=== PATIENT | male | born 1935 | race Caucasian/White ===

== ENCOUNTER 2016-10-06 09:07 | Observation (INO) | payer MEDICARE ==
[~2016-10-06] VITALS: Ht 162.6 cm; Wt 87.0 kg
[~2016-10-06 09:07] MED LIST: AMOXICILLIN/CL875 MG PO; AUGMENTIN875TAB PO; AVODART0.5 MG PO; BL ADULT ASA81 MG OR; CIPROFLOXACN500 MG PO; CRESTOR40 MG PO; FISH OIL1200 MG PO; FLOMAX0.4 M1 PO; FLONASE NASAL50 MCG; FLORASTOR250 M1 PO; MECLIZINE25 MG PO; MELOXICAM15 MG PO; MELOXICAM7.5 MG PO; METOPROL TAR25 M1 PO; NORCO1 TA1 OR; OMEPRAZOLE20 MG PO; PRAVASTATIN SOD20 MG PO; ROCEPHIN 1 GM1 GM IM; TRAMADOL HCL50 MG PO; VITAMIN C500 MG OR; VITAMIN D31000 UNI1 OR
--- NOTE | 2016-10-06 09:10 | NUR ---
PT TO ROOM 9 VIA WHEELCHAIR.
[2016-10-06] MEDS ORDERED: LEFLUNOMIDE20 MG PO (09:26)
[2016-10-06] MEDS ORDERED: ATORVASTATIN CA80 MG PO (09:27)
[2016-10-06] MEDS ORDERED: LISINOPRIL5 MG PO (09:28)
[2016-10-06] MEDS ORDERED: PLAVIX75 MG PO (09:28)
[2016-10-06] MEDS ORDERED: ASPIRIN EC81 MG PO (09:29)
[2016-10-06 09:37] LABS: HEMATOCRIT 37.7 % (39.0-50.0); HEMOGLOBIN 11.9 g/dl (14.0-18.0); MEAN CELL VOLUME 94.7 fL CALC (80.0-100.0); MEAN CORPUSCULAR HGB 29.9 pG CALC (26.0-32.0); MEAN CORPUSCULAR HGB CONC 31.6 g/L CALC (32.0-36.0); NEUT# 2.51 thou/uL (1.82-7.42); RED BLOOD COUNT 3.98 mill/uL (4.70-6.10); RED CELL DISTRI WIDTH 14.8 % (11.5-15.5)
[2016-10-06 09:47] LABS: ALBUMIN 3.9 g/dL (3.2-5.0); ALKALINE PHOSPHATASE 160 u/l (38-126); ANION GAP 13 (6-22 (CALC)); BILIRUBIN, TOTAL 0.6 mg/dL (0.0-1.4); BUN 21 mg/dL (8-23); BUN/CREATININE RATIO 22 (12-20 (CALC)); CALCIUM 8.9 mg/dL (8.4-10.2); CARBON DIOXIDE 27 mmol/l (22-30); CHLORIDE 107 mmol/l (95-108); GFR > 60 ML/MIN (>=60 (CALC)); GFR FOR AFR.AMER. > 60 ML/MIN (>=60 (CALC)); GLUCOSE 95 mg/dL (82-115); POTASSIUM 4.1 mmol/l (3.5-5.1); SGOT/AST 48 u/l (19-48); SGPT/ALT 33 u/l (11-66); SODIUM 143 mmol/l (137-146); TOTAL PROTEIN 7.4 g/dL (6.3-8.2)
[2016-10-06 09:48] LABS: INTERNATIONAL NORMALIZED RATIO 0.9 RATIO (0.7-1.3); PROTHROMBIN TIME 10.1 SECONDS (9.0-12.5)
[2016-10-06 10:00] LABS: MYOGLOBIN 96 ng/mL (0 - 121)
--- NOTE | 2016-10-06 11:19 | NUR ---
PT IN HIGH SCHMIDT'S POSITION, C/O RESOLVED LEFT SIDED CHEST PAIN, NO DIAPHORESIS OR SHORTNESS OF BREATH NOTED. MONITOR SHOWS SR, BRUISING NOTED TO LEFT CHEST WALL AND LEFT SHOULDER. PT REPORTS OLD NON SYNCOPAL FALL.
--- NOTE | 2016-10-06 12:25 | NUR ---
RECEIVED PT FROM ER VIA WHEELCHAIR, PT ABLE TO AMBULATE TO SCALE AND THEN TO BED WITH MINIMIAL ASSISTANCE. INSTRUCTED ON ROOM ARRANGEMENT, OPERATION OF BED AND CALL LIGHT. PT VERBALIZED UNDERSTANDING OF TEACHING. INSTRUCTED PT THAT WE WILL MONITOR HIS LAB VALUES. PT UNDERSTANDS TEACHING AND WILLING TO PARTICIPATE IN CARE. CALL LIGHT WITHIN REACH.
--- NOTE | 2016-10-06 12:25 | NUR ---
PT TO M ED SURG VIA WC IN STABLE CONDITION.
[2016-10-06 12:31] VITALS: BP 209/78
[2016-10-06] MEDS ORDERED: CALCIUM 1200 PO (13:30)
[2016-10-06] MEDS ORDERED: CALCIUM600 M1 PO (13:34)
--- NOTE | 2016-10-06 13:36 | NUR ---
PT WAS DOING ALRIGHT, HE DID NOT HAVE ANY CONCERNS OR SE WITH ANY MEDICATION. HE WAS ANXIOUS ABOUT LEAVING TOMORROW.
[2016-10-06 15:24] VITALS: BP 134/73
--- NOTE | 2016-10-06 18:13 | NUR ---
PT CONTINUES TO REST QUIETLY. NO CHANGE IN ASSESSMENT. NO COMPLAINTS VOICED AT THIS TIME. WILL CONTINUE TO MONITOR. CALL LIGHT WITHIN REACH.
[2016-10-06 19:22] VITALS: BP 121/68
--- NOTE | 2016-10-06 19:45 | NUR ---
3RD TROPININ BACK, NOTIFIED DR. THRASHER, PATIENT BEING DISCHARGE. PT IS TO FOLLOW UP WITH PROSTHETICS LAB TECHNICIAN AND PRIMARY CARE PHYSICIAN IN ONE WEEK. PT VERBALIZED UNDERSTANDING OF TEACHING.
--- NOTE | 2016-10-06 20:04 | NUR ---
Discharge instructions given. Patient verbalizes understanding of same. Discharged in stable condition via Wheelchair to Home with spouse. All belongings sent with pt.
== END 2016-10-06 20:05 | disposition home or self-care (01) ==
LOC: ENPENDDIS → ED 09:07 → ED-I 10:49 → ED 10:54 → MS2 10:55
PROVIDERS: Emergency Medicine; ADMIT Internal Medicine; ATTEND Internal Medicine
DX: R07.89 Other chest pain (principal); I16.0 Hypertensive urgency; I10 Essential (primary) hypertension; I25.10 Atherosclerotic heart disease of native coronary artery without angina pectoris; S20.212A Contusion of left front wall of thorax, initial encounter; M25.512 Pain in left shoulder; R94.31 Abnormal electrocardiogram [ECG] [EKG]; W19.XXXA Unspecified fall, initial encounter; Z87.891 Personal history of nicotine dependence
CPT/HCPCS: G0378

== ENCOUNTER 2018-06-26 10:30 | Observation (INO) | payer MEDICARE ==
[~2018-06-26] VITALS: Ht 162.6 cm; Wt 90.9 kg
[2018-06-26] VITALS (11 sets, daily range): BP systolic 113–157; BP diastolic 54–75
[~2018-06-26 10:30] MED LIST changes: +ASPIRIN EC81 MG PO; +ATORVASTATIN CA80 MG PO; +CALCIUM 1200 PO; +CALCIUM600 M1 PO; +LEFLUNOMIDE20 MG PO; +LISINOPRIL5 MG PO; +PLAVIX75 MG PO
--- NOTE | 2018-06-26 10:37 | NUR ---
PT STATES THAT HE BEGAN FEELING DIZZY YESTERDAY SINCE YESTERDAY. PT IS AOX4. PT DENIES ANY C/P, SOB, N/V OR WEAKNESS. PT DENIES HEADACHE OR BLURRED VISION. PT STATES HE DID NOT TAKE HIS B/P MEDICATION TODAY. PT STATES THAT HE IS ALSO NAUSEATED BUT DID NOT VOMIT.
[2018-06-26 10:54] LABS: HEMATOCRIT 42.6 % (39.0-50.0); HEMOGLOBIN 13.8 g/dl (14.0-18.0); IMMATURE GRANULOCYTES 0.3 % (0.0-5.0); MEAN CELL VOLUME 93.8 fL CALC (80.0-100.0); MEAN CORPUSCULAR HGB 30.4 pG CALC (26.0-32.0); MEAN CORPUSCULAR HGB CONC 32.4 g/L CALC (32.0-36.0); NEUT# 4.33 thou/uL (1.82-7.42); RED BLOOD COUNT 4.54 mill/uL (4.70-6.10); RED CELL DISTRI WIDTH 14.9 % (11.5-15.5)
[2018-06-26 11:11] LABS: ANION GAP 14 (6-22 (CALC)); BUN 19 mg/dL (8-23); BUN/CREATININE RATIO 18 (12-20 (CALC)); CARBON DIOXIDE 25 mmol/l (22-30); CHLORIDE 104 mmol/l (95-108); CREATININE 1.1 mg/dL (0.7-1.3); GFR > 60 ML/MIN (>=60 (CALC)); GFR FOR AFR.AMER. > 60 ML/MIN (>=60 (CALC)); POTASSIUM 4.8 mmol/l (3.5-5.1); SODIUM 138 mmol/l (137-146)
--- NOTE | 2018-06-26 11:37 | NUR ---
PT RESTING ON STRETCHER, DISCUSSING CONTINUED TREATMENT OPTIONS WITH MD
--- NOTE | 2018-06-26 12:37 | NUR ---
PT RESTING ON STRETCHER, FRIEND AT BEDSIDE. NO COMPLAINTS STATED
--- NOTE | 2018-06-26 13:37 | NUR ---
PT RESTING ON STRETCHER, IV PATENT WITH MEDICATION RUNNING
--- NOTE | 2018-06-26 13:48 | NUR ---
REPORT CALLED TO BERTHA HUGHES- ACCEPTED PT
--- NOTE | 2018-06-26 14:00 | NUR ---
male pt received to ICU bed 3 via stretcher accompanied by Luther Srivastava RN in stable condition; ambulatory to scale then bed with steady gait; admission assessment completed at this time; pt alert and oriented; c/c of n/v/ dizziness and elevated bp; pt denies taking bp meds this morning d/t inability to eat; denies pain and current; no n/v noted; resp even and unlabored; lungs clear; skin color wnl; ra; hr reg; strong pulses; no edema noted; sr on monitor; bilat knee high lemuel hose placed; abd soft with bs present; no bm noted per magnetic tape typewriter operator; pt voiding clear yellow urine without complication; urinal at bedside; #20 intact to lac with cardene gtt infusing at 5mg/hr; no redness or edema noted at site; generalized bruising/ecchymosis/scabs noted throughout body; bandaid noted to mid lower back s/p spinal stenosis sx on 06/07/18; bruising noted to sacrum; plan of care/ meds explained; call light within reach; will continue to monitor
--- NOTE | 2018-06-26 14:09 | NUR ---
Admission Note Report Given to: EBRTHA HUGHES Transported by: Wheelchair X Stretcher Transported with: X Nurse Transporter X Patent IV O2 X Technology Education Teacher TRASNPORTED TO ICU 3 WITHOUT INCIDENT
--- NOTE | 2018-06-26 15:59 | NUR ---
awake in bed; no distress noted; pt offers no complaints; iv patent; no redness or edema noted at site; cardene gtt cont at 5mg/hr; no redness or edema noted at site; pt deny needs; call light within reach; will continue to monitor
--- NOTE | 2018-06-26 16:15 | NUR ---
Dr Krishnan present at bedside to assess pt and discuss plan of care; SBP to remain above 140; cardene gtt titrated to 2.5mg/hr at this time; sr on monitor; cardene gtt to be weaned after po meds; will continue to monitor
--- NOTE | 2018-06-26 17:12 | NUR ---
Dr Krishnan called per telegraphic typewriter mechanic; lisinopril scheduled to start in am; order to start now
--- NOTE | 2018-06-26 18:07 | NUR ---
awake in bed eating dinner; no distress noted; spouse present at bedside; iv patent; cardene gtt at 2.5mg/hr; no redness or edema noted at site; sr on monitor; bed in lowest position; call light within reach
--- NOTE | 2018-06-26 18:50 | NUR ---
PREVIOS SHIFT NURSE ROSIE CONNELL GTT AT THIS TIME FOR BP WNL
--- NOTE | 2018-06-26 20:00 | NUR ---
PT RESTING IN BED WTIH EYES CLOSED. PT AROUSES TO VERBAL STIMULI. PT IS ALERT AND ORIENTED X3. SHIFT ASSESSMENT COMPLETED AT THIS TIME. PLAN OF CARE REVIEWED WITH PT. PT VERBALIZED UNDERSTANDING. CALL LIGHT IN REACH. WILL CONTINUE TO MONITOR.
--- NOTE | 2018-06-26 22:12 | NUR ---
PT RESTING IN BNED WITH EYES CLOSED. RESP ARE EVEN AND UNLABORED. NO DISTRESS NOTED. CALL LIGHT IN REACH. WILL CONTINUE TO MONITOR.
--- NOTE | 2018-06-27 00:06 | NUR ---
PT RESTING IN BED WITH EYES CLOSED. RESP ARE EVEN AND UNLABORED. NO DISTRESS NOTED. CALL LIGHT IN REACH. WILL CONTINUE TO MONTIOR
[2018-06-27 01:00] VITALS: BP 148/59
--- NOTE | 2018-06-27 02:01 | NUR ---
PT RESTING IN BED WITH EYES CLOSED. RESP ARE EVEN AND UNLABORED. NO DISTRESS NOTED. CALL LIGHT IN REACH. WILL CONTINUE TO MONTIOR
[2018-06-27 03:00] VITALS: BP 153/78
--- NOTE | 2018-06-27 03:33 | NUR ---
PT RESTING IN BED WITH EYES CLOSED. RESP ARE EVEN AND UNLABORED. NO DISTRESS NOTED. CALL LIGHT IN REACH. WILL CONTINUE TO MONITOR
--- NOTE | 2018-06-27 04:10 | NUR ---
AVIATION ORDNANCE OFFICER INTO ROOM TO DRAW AM LABS
[2018-06-27 04:46] LABS: HEMATOCRIT 39.6 % (39.0-50.0); HEMOGLOBIN 12.5 g/dl (14.0-18.0); IMMATURE GRANULOCYTES 0.2 % (0.0-5.0); MEAN CELL VOLUME 93.6 fL CALC (80.0-100.0); MEAN CORPUSCULAR HGB 29.6 pG CALC (26.0-32.0); MEAN CORPUSCULAR HGB CONC 31.6 g/L CALC (32.0-36.0); NEUT# 3.7 thou/uL (1.82-7.42); RED BLOOD COUNT 4.23 mill/uL (4.70-6.10); RED CELL DISTRI WIDTH 15.1 % (11.5-15.5)
[2018-06-27 05:07] LABS: ALBUMIN 3.2 g/dL (3.2-5.0); ALKALINE PHOSPHATASE 114 u/l (38-126); ANION GAP 8 (6-22 (CALC)); BILIRUBIN, TOTAL 0.6 mg/dL (0.0-1.4); BUN 15 mg/dL (8-23); BUN/CREATININE RATIO 15 (12-20 (CALC)); CARBON DIOXIDE 30 mmol/l (22-30); CHLORIDE 107 mmol/l (95-108); GFR > 60 ML/MIN (>=60 (CALC)); GFR FOR AFR.AMER. > 60 ML/MIN (>=60 (CALC)); MAGNESIUM 1.9 mg/dL (1.6-2.3); POTASSIUM 4.6 mmol/l (3.5-5.1); SGOT/AST 21 u/l (19-48); SODIUM 141 mmol/l (137-146)
--- NOTE | 2018-06-27 05:56 | NUR ---
PT RESTING IN BED AWAKE WATCHING TV. RESP ARE EVEN AND UNLABORED. NO DISTRESS NOTED. CALL LIGHT IN REACH. WILL CONTINUE TO MONITOR
[2018-06-27 05:57] VITALS: BP 134/65
[2018-06-27 08:00] VITALS: BP 157/77
--- NOTE | 2018-06-27 08:00 | NUR ---
PT SEEN AWAKE, ALERT. LUNGS CLEAR BUT DIMINISHED. PT STATES RECENT BACK SURGERY, STILL HEALING FROM THAT. PT HOPES FOR DISCHARGE TODAY.
[2018-06-27 09:00] VITALS: BP 157/77
--- NOTE | 2018-06-27 09:46 | NUR ---
PT OFFERED AM ADL CARE WITH AT BEDSIDE, STATES HE WOULD RATHER WAIT UNTIL THE DOCTOR ROUNDS BECAUSE IF HE CAN BE DISCHARGED HE WILL JUST CLEAN UP AT HOME. WILL READDRESS AFTER MD ROUNDS, CALL AYERS WITHIN REACH, AT BEDSIDE.
[2018-06-27 11:00] VITALS: BP 119/61
--- NOTE | 2018-06-27 12:03 | NUR ---
PT SEEN BY DR LONG THIS MORNING, ANTICIPATE DISPOSITION HOME SOON.
--- NOTE | 2018-06-27 12:28 | NUR ---
PT HAS BEEN DISCHARGED TO HOME. PT VERBALIZED UNDERSTANDING OF DC INSTRUCTIONS, TAKEN BY WHEELCHAIR TO BENCH OUTSIDE. PT LEAVES IN STABLE CONDITION, LAST BLOOD PRESSURE 117/51.
== END 2018-06-27 12:15 | disposition home or self-care (01) ==
LOC: ED 10:30 → ED-I 11:50 → ED 12:13 → ICU 12:14
PROVIDERS: Family Medicine; ADMIT Internal Medicine Nephrology; ATTEND Internal Medicine Nephrology
DX: I16.1 Hypertensive emergency (principal); I10 Essential (primary) hypertension; T46.5X6A Underdosing of other antihypertensive drugs, initial encounter; E78.5 Hyperlipidemia, unspecified; I25.10 Atherosclerotic heart disease of native coronary artery without angina pectoris; N40.0 Benign prostatic hyperplasia without lower urinary tract symptoms; F41.9 Anxiety disorder, unspecified; K21.9 Gastro-esophageal reflux disease without esophagitis; M06.9 Rheumatoid arthritis, unspecified; Z95.5 Presence of coronary angioplasty implant and graft; Z91.128 Patient's intentional underdosing of medication regimen for other reason; Z79.02 Long term (current) use of antithrombotics/antiplatelets; Z87.891 Personal history of nicotine dependence
CPT/HCPCS: J1650

== ENCOUNTER 2018-10-22 13:54 | Emergency (ER) | payer MEDICARE ==
[~2018-10-22] VITALS: Ht 162.6 cm; Wt 86.4 kg
[2018-10-22] MEDS ORDERED: MUPIROCIN2 % EX (14:28)
[2018-10-22] MEDS ORDERED: AUGMENTIN875TAB PO (14:28)
[2018-10-22 15:04] VITALS: BP 124/55
== END 2018-10-22 15:04 | disposition home or self-care (01) ==
LOC: ED 13:54
DX: S61.452A Open bite of left hand, initial encounter (principal); I10 Essential (primary) hypertension; W54.0XXA Bitten by dog, initial encounter; Y93.89 Activity, other specified; Y92.009 Unspecified place in unspecified non-institutional (private) residence as the place of occurrence of the external cause

== ENCOUNTER 2020-12-13 17:24 | Emergency (ER) | payer MEDICARE ==
[~2020-12-13 17:24] MED LIST changes: +MUPIROCIN2 % EX
== END 2020-12-13 18:11 | disposition left against medical advice (07) ==
LOC: ED 17:24 → LWOBS 18:11
DX: Z53.21 Procedure and treatment not carried out due to patient leaving prior to being seen by health care provider (principal)

== ENCOUNTER 2021-10-01 17:41 | Emergency (ER) | payer MEDICARE ==
[~2021-10-01] VITALS: Ht 162.6 cm; Wt 91.4 kg
[2021-10-01 18:28] VITALS: BP 164/70
[2021-10-01 18:31] VITALS: BP 122/101
[2021-10-01 18:35] VITALS: BP 140/67
[2021-10-01] MEDS ORDERED: METOPROL TAR25 MG PO (18:41)
[2021-10-01] MEDS ORDERED: TAMSULOSIN HCL0.4 MG PO (18:41)
[2021-10-01] MEDS ORDERED: ATORVASTATIN CA80 MG PO (18:41)
[2021-10-01] MEDS ORDERED: LISINOPRIL5 MG PO (18:41)
[2021-10-01] MEDS ORDERED: CLOPIDOGREL75 MG PO (18:42)
[2021-10-01] MEDS ORDERED: OMEPRAZOLE DR40 MG PO (18:42)
[2021-10-01] MEDS ORDERED: EZETIMIBE10 MG PO (18:43)
[2021-10-01 19:14] LABS: HEMATOCRIT 41.5 % (39.0-50.0); HEMOGLOBIN 13.1 g/dl (14.0-18.0); IMMATURE GRANULOCYTES 0.2 % (0.0-5.0); MEAN CELL VOLUME 97.6 fL CALC (80.0-100.0); MEAN CORPUSCULAR HGB 30.8 pG CALC (26.0-32.0); MEAN CORPUSCULAR HGB CONC 31.6 g/dL CAL (32.0-36.0); NEUT# 3.18 thou/uL (1.82-7.42); RED BLOOD COUNT 4.25 mill/uL (4.70-6.10); RED CELL DISTRI WIDTH 14.9 % (11.5-15.5)
[2021-10-01 19:25] LABS: BILIRUBIN, TOTAL 0.5 mg/dL (0.0-1.4); CREATININE 1.4 mg/dL (0.7-1.3); POTASSIUM 4.7 mmol/l (3.5-5.1)
[2021-10-01 19:26] LABS: ALBUMIN 4.1 g/dL (3.2-5.0); TOTAL PROTEIN 7.9 g/dL (6.3-8.2)
[2021-10-01 19:30] VITALS: BP 132/59
[2021-10-01 19:45] VITALS: BP 131/48
[2021-10-01] MEDS ORDERED: ROBITUSSIN AC10 ML PO (20:34)
[2021-10-01] MEDS ORDERED: NAPROXEN500 MG PO (20:34)
[2021-10-01] MEDS ORDERED: ZITHROMAX250 MG PO (20:34)
[2021-10-01 20:39] VITALS: BP 131/48
[2021-10-02] MEDS ORDERED: ROBITUSSIN AC10 ML PO (14:23)
== END 2021-10-01 21:10 | disposition home or self-care (01) ==
LOC: ED 17:41
PROVIDERS: Emergency Medicine
DX: J06.9 Acute upper respiratory infection, unspecified (principal); R07.89 Other chest pain; I10 Essential (primary) hypertension; E78.00 Pure hypercholesterolemia, unspecified; Z95.5 Presence of coronary angioplasty implant and graft; Z20.822 Contact with and (suspected) exposure to COVID-19
CPT/HCPCS: Q9967

== ENCOUNTER 2022-07-22 16:41 | Emergency (ER) | payer MEDICARE ==
[~2022-07-22] VITALS: Ht 162.6 cm; Wt 95.0 kg
[~2022-07-22 16:41] MED LIST changes: +CLOPIDOGREL75 MG PO; +EZETIMIBE10 MG PO; +METOPROL TAR25 MG PO; +NAPROXEN500 MG PO; +OMEPRAZOLE DR40 MG PO; +ROBITUSSIN AC10 ML PO; +TAMSULOSIN HCL0.4 MG PO; +ZITHROMAX250 MG PO
[2022-07-22 17:59] LABS: BASO% 0.3 % (0-3); HEMOGLOBIN 11.7 g/dl (14.0-18.0); LYMPH% 31.3 % (15-41); MEAN CORPUSCULAR HGB 33.1 pG CALC (26.0-32.0); MEAN CORPUSCULAR HGB CONC 33.7 g/dL CAL (32.0-36.0); MONO% 15.4 % (2-13); NEUT# 1.97 thou/uL (1.82-7.42); RED BLOOD COUNT 3.54 mill/uL (4.70-6.10); RED CELL DISTRI WIDTH 15.5 % (11.5-15.5)
[2022-07-22 18:10] LABS: HEMATOCRIT 34.7 % (39.0-50.0)
[2022-07-22 18:32] LABS: ALBUMIN 3.7 g/dL (3.2-5.0); CREATININE 1.5 mg/dL (0.7-1.3); POTASSIUM 4.6 mmol/l (3.5-5.1); TOTAL PROTEIN 6.8 g/dL (6.3-8.2)
[2022-07-22 18:54] LABS: URINE BILIRUBIN - DIPSTICK NEGATIVE (NEGATIVE); URINE BLOOD DIPSTICK TRACE-INTACT (NEGATIVE); URINE COLOR YELLOW; URINE GLUCOSE - DIPSTICK NEGATIVE (NEGATIVE); URINE KETONE NEGATIVE (NEGATIVE); URINE LEUK ESTERASE NEGATIVE (NEGATIVE); URINE NITRITE - DIPSTICK NEGATIVE (Negative); URINE PROTEIN - DIPSTICK TRACE mg/dL (NEG-TRACE)
[2022-07-22] MEDS ORDERED: DEXAMETHASON6 MG PO (20:06)
[2022-07-22] MEDS ORDERED: ZPAK PO (20:06)
[2022-07-22] MEDS ORDERED: PULSE OXIMETER TD (20:07)
[2022-07-22 20:34] VITALS: BP 185/79
== END 2022-07-22 20:34 | disposition home or self-care (01) ==
LOC: ED 16:41
PROVIDERS: Nurse Practitioner
DX: U07.1 COVID-19 (principal); R52 Pain, unspecified; R05.9 Cough, unspecified; R06.02 Shortness of breath; R68.83 Chills (without fever); I10 Essential (primary) hypertension; E78.00 Pure hypercholesterolemia, unspecified; Z95.5 Presence of coronary angioplasty implant and graft